=== PATIENT | female | born 1975 | race Caucasian/White ===

== ENCOUNTER → 2016-10-22 | Outpatient (CLI) | payer BC | LOC: BHSO 10:58 | DX: F31.81 Bipolar II disorder (principal) ==

== ENCOUNTER → 2016-12-13 | Outpatient (CLI) | payer BC | LOC: BHSO 09:36 | DX: F31.81 Bipolar II disorder (principal) ==

== ENCOUNTER → 2017-02-07 | Outpatient (CLI) | payer BC | LOC: BHSO 15:57 | DX: F31.73 Bipolar disorder, in partial remission, most recent episode manic (principal) ==

== ENCOUNTER → 2017-04-11 | Outpatient (CLI) | payer BC | LOC: BHSO 15:35 | DX: F33.1 Major depressive disorder, recurrent, moderate (principal) ==

== ENCOUNTER → 2017-04-25 | Outpatient (CLI) | payer BC | LOC: BHSO 13:55 | DX: F33.2 Major depressive disorder, recurrent severe without psychotic features (principal) ==

== ENCOUNTER → 2017-05-02 | Outpatient (CLI) | payer BC | LOC: BHSO 14:54 | DX: F33.2 Major depressive disorder, recurrent severe without psychotic features (principal) ==

== ENCOUNTER → 2017-05-16 | Outpatient (CLI) | payer BC | LOC: BHSO 13:55 | DX: F33.2 Major depressive disorder, recurrent severe without psychotic features (principal) ==

== ENCOUNTER → 2017-05-26 | Outpatient (CLI) | payer BC | LOC: BHSO 12:56 | DX: F33.2 Major depressive disorder, recurrent severe without psychotic features (principal) ==

== ENCOUNTER → 2017-05-27 | Outpatient (CLI) | payer BC | LOC: BHSO 10:15 | DX: F33.1 Major depressive disorder, recurrent, moderate (principal) ==

== ENCOUNTER → 2017-06-03 | Outpatient (CLI) | payer BC | LOC: BHSO 10:58 | DX: F33.2 Major depressive disorder, recurrent severe without psychotic features (principal) ==

== ENCOUNTER → 2017-06-10 | Outpatient (CLI) | payer BC | LOC: BHSO 10:55 | DX: F33.2 Major depressive disorder, recurrent severe without psychotic features (principal) ==

== ENCOUNTER → 2017-06-17 | Outpatient (CLI) | payer BC | LOC: BHSO 12:59 | DX: F33.2 Major depressive disorder, recurrent severe without psychotic features (principal) ==

== ENCOUNTER → 2017-06-24 | Outpatient (CLI) | payer BC | LOC: BHSO 10:59 | DX: F33.2 Major depressive disorder, recurrent severe without psychotic features (principal) ==

== ENCOUNTER → 2017-07-06 | Outpatient (CLI) | payer BC | LOC: BHSO 14:54 | DX: F33.2 Major depressive disorder, recurrent severe without psychotic features (principal) ==

== ENCOUNTER → 2017-07-15 | Outpatient (CLI) | payer BC | LOC: BHSO 11:04 | DX: Z01.89 Encounter for other specified special examinations (principal) ==

== ENCOUNTER → 2017-07-22 | Outpatient (CLI) | payer BC | LOC: BHSO 10:54 | DX: F33.2 Major depressive disorder, recurrent severe without psychotic features (principal) ==

== ENCOUNTER → 2017-07-29 | Outpatient (CLI) | payer BC | LOC: BHSO 13:03 | DX: F33.2 Major depressive disorder, recurrent severe without psychotic features (principal) ==

== ENCOUNTER → 2017-08-05 | Outpatient (CLI) | payer BC | LOC: BHSO 10:58 | DX: F33.2 Major depressive disorder, recurrent severe without psychotic features (principal) ==

== ENCOUNTER → 2017-08-11 | Outpatient (CLI) | payer BC | LOC: BHSO 09:37 | DX: F41.1 Generalized anxiety disorder (principal) ==

== ENCOUNTER → 2017-08-19 | Outpatient (CLI) | payer BC | LOC: BHSO 12:57 | DX: F33.2 Major depressive disorder, recurrent severe without psychotic features (principal) ==

== ENCOUNTER → 2017-08-26 | Outpatient (CLI) | payer BC | LOC: BHSO 13:51 | DX: F33.2 Major depressive disorder, recurrent severe without psychotic features (principal) ==

== ENCOUNTER → 2017-09-16 | Outpatient (CLI) | payer BC | LOC: BHSO 10:54 | DX: F33.2 Major depressive disorder, recurrent severe without psychotic features (principal) ==

== ENCOUNTER → 2017-09-30 | Outpatient (CLI) | payer BC | LOC: BHSO 12:53 | DX: F33.2 Major depressive disorder, recurrent severe without psychotic features (principal) ==

== ENCOUNTER → 2017-10-04 | Outpatient (CLI) | payer BC | LOC: BHSO 10:16 | DX: F41.1 Generalized anxiety disorder (principal) ==

== ENCOUNTER → 2017-10-07 | Outpatient (CLI) | payer BC | LOC: BHSO 09:56 | DX: F33.2 Major depressive disorder, recurrent severe without psychotic features (principal) ==

== ENCOUNTER → 2017-10-21 | Outpatient (CLI) | payer BC | LOC: BHSO 12:55 | DX: F33.2 Major depressive disorder, recurrent severe without psychotic features (principal) ==

== ENCOUNTER → 2017-11-04 | Outpatient (CLI) | payer BC | LOC: BHSO 12:56 | DX: F33.2 Major depressive disorder, recurrent severe without psychotic features (principal) ==

== ENCOUNTER → 2017-11-18 | Outpatient (CLI) | payer BC | LOC: BHSO 15:58 | DX: F33.2 Major depressive disorder, recurrent severe without psychotic features (principal) ==

== ENCOUNTER → 2017-12-07 | Outpatient (CLI) | payer BC | LOC: BHSO 13:54 | DX: F31.81 Bipolar II disorder (principal) | CPT/HCPCS: G0463 ==

== ENCOUNTER → 2017-12-09 | Outpatient (CLI) | payer BC | LOC: BHSO 12:55 | DX: F33.2 Major depressive disorder, recurrent severe without psychotic features (principal) ==

== ENCOUNTER → 2017-12-16 | Outpatient (CLI) | payer BC | LOC: BHSO 10:55 | DX: F33.2 Major depressive disorder, recurrent severe without psychotic features (principal) ==

== ENCOUNTER → 2018-01-06 | Outpatient (CLI) | payer BC | LOC: BHSO 10:56 | DX: F33.2 Major depressive disorder, recurrent severe without psychotic features (principal) ==

== ENCOUNTER → 2018-01-20 | Outpatient (CLI) | payer BC | LOC: BHSO 10:56 | DX: F33.2 Major depressive disorder, recurrent severe without psychotic features (principal) ==

== ENCOUNTER → 2018-01-27 | Outpatient (CLI) | payer BC | LOC: BHSO 12:56 | DX: F33.2 Major depressive disorder, recurrent severe without psychotic features (principal) ==

== ENCOUNTER → 2018-02-03 | Outpatient (CLI) | payer BC | LOC: BHSO 10:55 | DX: F33.2 Major depressive disorder, recurrent severe without psychotic features (principal) ==

== ENCOUNTER → 2018-02-24 | Outpatient (CLI) | payer BC | LOC: BHSO 10:56 | DX: F33.2 Major depressive disorder, recurrent severe without psychotic features (principal) ==

== ENCOUNTER → 2018-03-01 | Outpatient (CLI) | payer BC | LOC: BHSO 13:50 | DX: F31.81 Bipolar II disorder (principal) | CPT/HCPCS: G0463 ==

== ENCOUNTER → 2018-03-03 | Outpatient (CLI) | payer BC | LOC: BHSO 10:55 | DX: F33.2 Major depressive disorder, recurrent severe without psychotic features (principal) ==

== ENCOUNTER → 2018-03-24 | Outpatient (CLI) | payer BC | LOC: BHSO 13:57 | DX: F33.2 Major depressive disorder, recurrent severe without psychotic features (principal) ==

== ENCOUNTER → 2018-03-31 | Outpatient (CLI) | payer BC | LOC: BHSO 10:57 | DX: F33.2 Major depressive disorder, recurrent severe without psychotic features (principal) ==

== ENCOUNTER → 2018-04-14 | Outpatient (CLI) | payer BC | LOC: BHSO 10:56 | DX: F33.2 Major depressive disorder, recurrent severe without psychotic features (principal) ==

== ENCOUNTER → 2018-04-28 | Outpatient (CLI) | payer BC | LOC: BHSO 13:00 | DX: F33.2 Major depressive disorder, recurrent severe without psychotic features (principal) ==

== ENCOUNTER → 2018-05-03 | Outpatient (CLI) | payer BC | LOC: BHSO 14:33 | DX: F31.81 Bipolar II disorder (principal) | CPT/HCPCS: G0463 ==

== ENCOUNTER → 2018-05-05 | Outpatient (CLI) | payer BC | LOC: BHSO 12:58 | DX: F33.2 Major depressive disorder, recurrent severe without psychotic features (principal) ==

== ENCOUNTER → 2018-05-26 | Outpatient (CLI) | payer BC | LOC: BHSO 12:57 | DX: F33.2 Major depressive disorder, recurrent severe without psychotic features (principal) ==

== ENCOUNTER → 2018-06-02 | Outpatient (CLI) | payer BC | LOC: BHSO 13:07 | DX: F33.2 Major depressive disorder, recurrent severe without psychotic features (principal) ==

== ENCOUNTER → 2018-06-16 | Outpatient (CLI) | payer BC | LOC: BHSO 12:59 | DX: F33.2 Major depressive disorder, recurrent severe without psychotic features (principal) ==

== ENCOUNTER → 2018-06-30 | Outpatient (CLI) | payer BC | LOC: BHSO 10:57 | DX: F33.2 Major depressive disorder, recurrent severe without psychotic features (principal) ==

== ENCOUNTER → 2018-07-07 | Outpatient (CLI) | payer BC | LOC: BHSO 10:55 | DX: F33.2 Major depressive disorder, recurrent severe without psychotic features (principal) ==

== ENCOUNTER → 2018-07-14 | Outpatient (CLI) | payer BC | LOC: BHSO 12:59 | DX: F33.2 Major depressive disorder, recurrent severe without psychotic features (principal) ==

== ENCOUNTER → 2018-07-28 | Outpatient (CLI) | payer BC | LOC: BHSO 10:54 | DX: F33.2 Major depressive disorder, recurrent severe without psychotic features (principal) ==

== ENCOUNTER → 2018-08-04 | Outpatient (CLI) | payer BC | LOC: BHSO 13:00 | DX: F33.2 Major depressive disorder, recurrent severe without psychotic features (principal) ==

== ENCOUNTER → 2018-08-15 | Outpatient (CLI) | payer BC | LOC: BHSO 15:14 | DX: F31.81 Bipolar II disorder (principal) | CPT/HCPCS: G0463 ==

== ENCOUNTER → 2018-09-01 | Outpatient (CLI) | payer BC | LOC: BHSO 12:58 | DX: F33.2 Major depressive disorder, recurrent severe without psychotic features (principal) ==

== ENCOUNTER → 2018-09-15 | Outpatient (CLI) | payer BC | LOC: BHSO 15:57 | DX: F33.2 Major depressive disorder, recurrent severe without psychotic features (principal) ==

== ENCOUNTER → 2018-10-26 | Outpatient (CLI) | payer BC | LOC: BHSO 10:57 | DX: F33.1 Major depressive disorder, recurrent, moderate (principal) ==

== ENCOUNTER → 2018-11-10 | Outpatient (CLI) | payer BC | LOC: BHSO 11:00 | DX: F33.1 Major depressive disorder, recurrent, moderate (principal) ==

== ENCOUNTER → 2018-11-15 | Outpatient (CLI) | payer BC | LOC: BHSO 14:37 | DX: F31.81 Bipolar II disorder (principal) | CPT/HCPCS: G0463 ==

== ENCOUNTER → 2018-11-20 | Outpatient (CLI) | payer BC | LOC: BHSO 10:56 | DX: F33.2 Major depressive disorder, recurrent severe without psychotic features (principal) ==

== ENCOUNTER → 2018-12-01 | Outpatient (CLI) | payer BC | LOC: BHSO 12:58 | DX: F33.2 Major depressive disorder, recurrent severe without psychotic features (principal) ==

== ENCOUNTER → 2018-12-15 | Outpatient (CLI) | payer BC | LOC: BHSO 12:03 | DX: F33.2 Major depressive disorder, recurrent severe without psychotic features (principal) ==

== ENCOUNTER → 2019-01-01 | Outpatient (CLI) | payer BC | LOC: BHSO 13:54 | DX: F33.1 Major depressive disorder, recurrent, moderate (principal) ==

== ENCOUNTER → 2019-01-15 | Outpatient (CLI) | payer BC | LOC: BHSO 09:36 | DX: F31.81 Bipolar II disorder (principal) | CPT/HCPCS: G0463 ==

== ENCOUNTER → 2019-01-19 | Outpatient (CLI) | payer BC | LOC: BHSO 10:55 | DX: F33.1 Major depressive disorder, recurrent, moderate (principal) ==

== ENCOUNTER → 2019-02-02 | Outpatient (CLI) | payer BC | LOC: BHSO 13:07 | DX: F33.2 Major depressive disorder, recurrent severe without psychotic features (principal) ==

== ENCOUNTER → 2019-02-16 | Outpatient (CLI) | payer BC | LOC: BHSO 10:57 | DX: F33.1 Major depressive disorder, recurrent, moderate (principal) ==

== ENCOUNTER → 2019-03-02 | Outpatient (CLI) | payer BC | LOC: BHSO 13:58 | DX: F33.1 Major depressive disorder, recurrent, moderate (principal) ==

== ENCOUNTER → 2019-03-06 | Outpatient (CLI) | payer BC | LOC: BHSO 15:36 | DX: F33.1 Major depressive disorder, recurrent, moderate (principal) | CPT/HCPCS: G0463 ==

== ENCOUNTER → 2019-03-23 | Outpatient (CLI) | payer BC | LOC: BHSO 13:00 | DX: F33.1 Major depressive disorder, recurrent, moderate (principal) ==

== ENCOUNTER → 2019-04-06 | Outpatient (CLI) | payer BC | LOC: BHSO 15:50 | DX: F33.1 Major depressive disorder, recurrent, moderate (principal) ==

== ENCOUNTER → 2019-05-18 | Outpatient (CLI) | payer BC | LOC: BHSO 09:58 | DX: F33.1 Major depressive disorder, recurrent, moderate (principal) ==

== ENCOUNTER → 2019-06-04 | Outpatient (CLI) | payer BC | LOC: BHSO 14:38 | DX: F31.81 Bipolar II disorder (principal) | CPT/HCPCS: G0463 ==

== ENCOUNTER → 2019-06-08 | Outpatient (CLI) | payer BC | LOC: BHSO 09:57 | DX: F33.1 Major depressive disorder, recurrent, moderate (principal) ==

== ENCOUNTER 2019-06-19 09:15 | Outpatient (RCR) | payer BC | END 2019-06-28 09:15 | disposition home or self-care (01) | LOC: WSPT 09:15 | DX: M25.521 Pain in right elbow (principal); M25.511 Pain in right shoulder ==

== ENCOUNTER → 2019-06-29 | Outpatient (CLI) | payer BC | LOC: BHSO 10:56 | DX: F33.1 Major depressive disorder, recurrent, moderate (principal) ==

== ENCOUNTER → 2019-07-20 | Outpatient (CLI) | payer BC | LOC: BHSO 10:56 | DX: F33.1 Major depressive disorder, recurrent, moderate (principal) ==

== ENCOUNTER → 2019-08-10 | Outpatient (CLI) | payer BC | LOC: BHSO 12:57 | DX: F33.1 Major depressive disorder, recurrent, moderate (principal) ==

== ENCOUNTER → 2019-08-24 | Outpatient (CLI) | payer BC | LOC: BHSO 10:54 | DX: F33.1 Major depressive disorder, recurrent, moderate (principal) ==

== ENCOUNTER → 2019-09-06 | Outpatient (CLI) | payer BC | LOC: BHSO 09:35 | DX: F33.42 Major depressive disorder, recurrent, in full remission (principal) | CPT/HCPCS: G0463 ==

== ENCOUNTER → 2019-11-02 | Outpatient (CLI) | payer BC | LOC: BHSO 10:53 | DX: F33.1 Major depressive disorder, recurrent, moderate (principal) ==

== ENCOUNTER → 2019-11-16 | Outpatient (CLI) | payer BC | LOC: BHSO 10:54 | DX: F33.1 Major depressive disorder, recurrent, moderate (principal) ==

== ENCOUNTER → 2019-11-30 | Outpatient (CLI) | payer BC | LOC: BHSO 10:55 | DX: F33.1 Major depressive disorder, recurrent, moderate (principal) ==

== ENCOUNTER → 2019-12-07 | Outpatient (CLI) | payer BC | LOC: MC.RAD 14:05 | DX: Z12.31 Encounter for screening mammogram for malignant neoplasm of breast (principal) ==

== ENCOUNTER → 2019-12-14 | Outpatient (CLI) | payer BC | LOC: BHSO 10:57 | DX: F33.1 Major depressive disorder, recurrent, moderate (principal) ==

== ENCOUNTER 2021-12-11 09:21 | Day surgery (SDC) | payer BC ==
[~2021-12-11] VITALS: Ht 172.7 cm; Wt 90.5 kg
[2021-12-11] MEDS ORDERED: PROTONIX 40MG T40 MG PO (09:51)
[2021-12-11] MEDS ORDERED: PAMELOR50 MG PO (09:51)
[2021-12-11 10:24] VITALS: BP 117/86; PULSE 101; TEMP 98.8
[2021-12-11 12:20] VITALS: BP 121/86; PULSE 80; TEMP 97
--- NOTE | 2021-12-11 12:20 | NUR ---
RECEIVED REPORT FROM ENDO RN. REPORT RECEIVED. VS OBTAINED. VSS. DISCUSSED PLAN OF CARE FOR DISCHARGE. ORIENTED TO ROOM AND CALL LIGHT. VERBALIZED UNDERSTANDING. WILL CONTINUE TO MONITOR.
[2021-12-11 12:35] VITALS: BP 122/77; PULSE 74
--- NOTE | 2021-12-11 12:35 | NUR ---
PT TOLERATING WATER AND MUFFIN. VSS. WILL CONTINUE TO MONITOR PT.
[2021-12-11 12:50] VITALS: BP 122/83; PULSE 84
--- NOTE | 2021-12-11 12:50 | NUR ---
VSS. PT STATES SHE IS READY FOR DISCHARGE. IV DC'D. DISCHARGE EDUCATION COMPLETED WITH PT. VERBALIZED UNDERSTANDING OF HOME AND FOLLOW UP CARE. ALL QUESTIONS ANSWERED. DISCHARGE PAPERWORK GIVEN TO PT.
--- NOTE | 2021-12-11 13:05 | NUR ---
PT OFF UNIT PER WHEELCHAIR. DISCHARGE TO HOME WITH PER PERSONAL VEHICLE.
== END 2021-12-11 13:05 | disposition home or self-care (01) ==
LOC: SDCO 09:21
DX: Z12.11 Encounter for screening for malignant neoplasm of colon (principal); D12.3 Benign neoplasm of transverse colon; D50.9 Iron deficiency anemia, unspecified; Q40.2 Other specified congenital malformations of stomach; K21.9 Gastro-esophageal reflux disease without esophagitis; K58.9 Irritable bowel syndrome, unspecified; K58.2 Mixed irritable bowel syndrome; R12 Heartburn; R00.0 Tachycardia, unspecified; Z79.899 Other long term (current) drug therapy
CPT/HCPCS: J2704; J3010; J7120

== ENCOUNTER 2024-05-10 11:21 | Emergency (ER) | payer BC ==
[~2024-05-10] VITALS: Ht 172.7 cm; Wt 97.7 kg
[~2024-05-10 11:21] MED LIST: PAMELOR50 MG PO; PROTONIX 40MG T40 MG PO
[2024-05-10 11:37] VITALS: TEMP 97.7
[2024-05-10 12:57] LABS: BASO # 0.1 K/mm3 (0.0-0.2); BASO % 0.7 % (0.0-2.0); EOS % 0.3 % (0.0-4.0); GRAN # 5.7 K/mm3 (1.4-6.5); GRAN % 74.3 % (42.2-75.2); HEMATOCRIT 41.6 % (37.0-47.0); LYMPH # 1.1 K/mm3 (1.2-3.4); LYMPH % 14.8 % (20.0-51.0); MEAN CELL VOLUME 87 fl (80.0-100.0); MEAN CORPUSCULAR HEMOGLOBIN 29 pg (27-31); MEAN CORPUSCULAR HGB CONC 34 g/dl (33.0-37.0); MONO # 0.7 K/mm3 (0.1-0.6); MONO % 9.1 % (1.7-9.3); PLATELET COUNT 173 K/mm3 (130-400); REDCELL DISTRIBUTION WIDTH-CV 12.5 % (11.5-14.5)
[2024-05-10 13:04] LABS: ERYTHROCYTE SEDIMENTATION RATE 25 mm/hr (0-20)
[2024-05-10 13:09] LABS: ALBUMIN 3.6 g/dL (3.5-5.0); BILIRUBIN,TOTAL 0.6 mg/dL (0.2-1.2); C-REACTIVE PROTEIN 4.17 mg/dL (0.00-0.50); CALCIUM 9.3 mg/dL (8.4-10.2); CREATININE, serum 0.98 mg/dL (0.57-1.11); MONOSCREEN NEGATIVE; TOTAL PROTEIN 7.4 g/dl (6.2-8.1)
[2024-05-10] MEDS ORDERED: NS 1,000 ML IV ONE (13:30)
[2024-05-10 13:46] LABS: COLLECTION METHOD CLEAN CATCH
[2024-05-10 13:50] LABS: PH 5.5 (5.0-8.5); URINE APPEARANCE CLEAR (CLEAR/HAZY); URINE BLOOD NEGATIVE (NEGATIVE); URINE COLOR YELLOW (YELLOW); URINE GLUCOSE NEGATIVE (NEGATIVE); URINE KETONE NEGATIVE (NEGATIVE); URINE NITRATE NEGATIVE (NEGATIVE); URINE PROTEIN(semi-quant) NEGATIVE (NEGATIVE); URINE UROBILINOGEN 0.2 E.U/dL (0.2-1.0)
[2024-05-10] MEDS ORDERED: diphenhydrAMINE 50 MG/ML 1 ML VIAL IV ONE (15:45)
[2024-05-10] MEDS ORDERED: Ondansetron 4 MG/2 ML VIAL IV ONE (15:45)
[2024-05-10] MEDS ORDERED: Ketorolac 30 MG/ML VIAL IV ONE (15:45)
[2024-05-10] MEDS ORDERED: ZITHROMAX Z PA250 MG PO (15:47)
[2024-05-10 16:26] VITALS: BP 107/77; PULSE 93
== END 2024-05-10 16:28 | disposition home or self-care (01) ==
LOC: COL.ER 11:21
PROVIDERS: Physician Assistant
DX: G44.099 Other trigeminal autonomic cephalgias (TAC), not intractable (principal)
CPT/HCPCS: J1200; J1885; J2405; J7030